=== PATIENT | female | born 1985 | race Caucasian/White ===

== ENCOUNTER 2021-09-07 23:46 | Outpatient (CLI) | payer OTHER, SELFPAY ==
[~2021-09-07] VITALS: Ht 154.9 cm; Wt 68.1 kg
[2021-09-07 23:57] VITALS: BP 119/89
[2021-09-08] MEDS ORDERED: diphenhydrAMINE 50MG CAP PO ONE (02:00)
[2021-09-08 03:44] VITALS: BP 125/74
[2021-09-08 06:30] VITALS: BP 133/86
[2021-09-08 08:23] VITALS: BP 126/81
== END 2021-09-08 12:21 | disposition home or self-care (01) ==
LOC: M LDO 23:46
PROVIDERS: ATTEND Advanced Practice Midwife
DX: O46.93 Antepartum hemorrhage, unspecified, third trimester (principal); O44.43 Low lying placenta NOS or without hemorrhage, third trimester; Z3A.33 33 weeks gestation of pregnancy